=== PATIENT | female | born 1970 | race Caucasian/White ===

== ENCOUNTER 2018-05-22 14:50 | Inpatient (IN) | payer MEDICARE, MEDICAID ==
[~2018-05-22] VITALS: Ht 147.3 cm; Wt 59.5 kg
[~2018-05-22 14:50] MED LIST: ACET-2119 PO; BACL10TA PO; CALC-159 GT; CHOL200016 GT; ESOM40CA GT; LORA-512 GT; METH1TAB GT; NORE1TAB4 GT; NUTR250L51 GT; NYST30CR2 TP; POLY17PO10 GT; SIME125T8 PEG; [UNRECOGNIZED DRUG - CODE] EACH EAR; [UNRECOGNIZED DRUG - CODE] PEG; etomidate 2mg/ml inj. ONE; rocuronium 10mg/ml inj IV ONE; sod chloride 0.9% 10ml flush syringe IV ONE
[2018-05-22] MEDS ORDERED: albuterol 2.5 MG/3 ML nebule NEB ONE (15:05)
[2018-05-22] MEDS ORDERED: normal saline 1000ML IV soln IVB ONE ×2 (15:05→16:25)
[2018-05-22 15:25] LABS: ABG BASE EXCESS -0.1 mmol/L (-2.0-3.0); ABG HCO3 22.2 mmol/L (22.0-26.0); ABG OXYGEN SATURATION 87.8 % (95-98); ABG PCO2 (T) 29.3 mmHg (32.0-45.0); ABG PH (T) 7.498 (7.350-7.450); ABG PO2 (T) 50.4 mmHg (83-108); ALLEN'S TEST Positive; FCOHb 1.7 % (0.5-1.5); FMetHb 0.1 % (0.3-1.12); FO2Hb 86.2 % (94-100); TOTAL HEMOGLOBIN 12.4 G/dl (12.0-16.0)
[2018-05-22 15:40] LABS: BASOPHILS % (AUTO) 0 % (0-1); EOSINOPHILS # (AUTO) 0.1 X10'3 (0-0.9); EOSINOPHILS % (AUTO) 0.7 % (0-6); HEMATOCRIT 35.7 % (35.0-45.0); HEMOGLOBIN 12.1 g/dl (12.0-16.0); LYMPHOCYTES # (AUTO) 1.2 X10'3 (1.1-4.8); LYMPHOCYTES % (AUTO) 7.2 % (21-51); MEAN CORPUSCULAR HEMOGLOBIN 27.6 PG (27.0-31.0); MEAN CORPUSCULAR HGB CONC 33.9 % (33.0-36.5); MEAN CORPUSCULAR VOLUME 81.4 FL (78-98); MEAN PLATELET VOLUME 10.9 FL (7.4-10.4); MONOCYTES # (AUTO) 0.9 X10'3 (0-0.9); MONOCYTES % (AUTO) 5.7 % (2-12); NEUTROPHILS # (AUTO) 13.9 X10'3 (1.8-7.7); NEUTROPHILS % (AUTO) 86.4 % (42-75); PLATELET COUNT 203 X10'3 (140-440); RED BLOOD COUNT 4.38 X10'6 (4.20-5.60); RED CELL DISTRIBUTION WIDTH 15.3 % (11.5-14.5); WHITE BLOOD COUNT 16.1 X10'3 (4.5-11.0)
[2018-05-22 15:44] LABS: PARTIAL THROMBOPLASTIN TIME 24 SECONDS (22-32)
[2018-05-22 15:49] LABS: LARGE PLATELETS FEW; PLATELET ESTIMATE NORMAL
[2018-05-22 15:50] LABS: ALANINE AMINOTRANSFERASE 189 U/L (12-78); ALBUMIN 2.5 G/DL (3.4-5.0); ALBUMIN/GLOBULIN RATIO 0.6 (1.1-1.5); ALKALINE PHOSPHATASE 134 IU/L (46-116); ANION GAP 9 (8-16); ASPARTATE AMINO TRANSFERASE 72 U/L (10-37); BLOOD UREA NITROGEN 12 MG/DL (7-18); BUN/CREATININE RATIO 21.4 (6.6-38.0); CHLORIDE 103 MMOL/L (99-107); CREATININE 0.56 MG/DL (0.40-0.90); GLUCOSE 156 MG/DL (70-104); POTASSIUM 3.4 MMOL/L (3.5-5.1); SODIUM 138 MMOL/L (135-145); TOTAL CARBON DIOXIDE 25.6 MMOL/L (24-32); TOTAL PROTEIN 6.6 G/DL (6.4-8.2); eGFR > 90 ML/MIN
[2018-05-22] MEDS ORDERED: levoFLOXACIN-Levaquin 500mg/D5 100 ML IV ONE (15:50)
[2018-05-22 15:56] LABS: MAGNESIUM 1.8 MG/DL (1.5-2.4)
[2018-05-22 16:31] LABS: CLARITY,URINE CLOUDY (Clear); GLUCOSE, URINE NEGATIVE (Neg); KETONES,URINE TRACE mg/dl (Neg); LEUKOCYTE ESTERASE ,URINE TRACE (Neg); NITRITES, URINE NEGATIVE (Neg); OCCULT BLOOD,URINE SMALL (Neg); PROTEIN,URINE 100 mg/dl (Neg)
[2018-05-22 16:37] LABS: UA COLLECTION TYPE STRAIGHT CATH
[2018-05-22 16:39] LABS: COLOR,URINE DARK YELLOW (Yellow)
[2018-05-22 16:41] LABS: BACTERIA,URINE 4+ /HPF (Neg); HYALINE CASTS 0-3 /LPF (NEGATIVE); MUCUS STRANDS MANY /LPF (Neg); SQUAMOUS EPITHELIAL CELL,UR MODERATE /LPF (FEW); TRANSITIONAL EPI CELLS,URINE FEW /HPF; WBC CLUMPS,URINE FEW /HPF (NEGATIVE)
[2018-05-22] MEDS ORDERED: potassium Cl 40MEQ/NS 500ml 500 ML IV PRN ×2 (17:20)
[2018-05-22] MEDS ORDERED: mag hydrox/Alum hydrox/simeth 30ml oral suspension PO PRN (17:20)
[2018-05-22] MEDS ORDERED: acetaminophen 325mg tablet PO PRN ×2 (17:20)
[2018-05-22] MEDS ORDERED: metoclopramide 5 mg/ml inj IV PRN (17:20)
[2018-05-22] MEDS ORDERED: bisacodyl 10mg suppository rectal RC PRN (17:20)
[2018-05-22] MEDS ORDERED: diphenhydrAMINE 25mg capsule PO PRN (17:20)
[2018-05-22] MEDS ORDERED: HYDROcodone/acetaminophen 5mg/325mg tablet PO PRN (17:20)
[2018-05-22] MEDS ORDERED: HYDROmorphone 1 mg/ml syringe IV PRN ×2 (17:20)
[2018-05-22] MEDS ORDERED: acetaminophen 650mg rectal suppository RC PRN (17:20)
[2018-05-22] MEDS ORDERED: morphine 4 MG/ML inj SYRINge IV PRN ×2 (17:20)
[2018-05-22] MEDS ORDERED: ondansetron/PF 4mg/2ml inj IV PRN (17:20)
[2018-05-22] MEDS ORDERED: HYDROcodone/acetaminophen 10/325mg tab PO PRN (17:20)
[2018-05-22] MEDS ORDERED: magnesium hydroxide 30ml (MOM) UD suspension PO PRN (17:20)
[2018-05-22] MEDS ORDERED: potassium Cl 20 mEq SR tablet PO PRN ×2 (17:20)
[2018-05-22] MEDS ORDERED: diphenhydrAMINE 50 mg/ml inj IV PRN (17:20)
[2018-05-22 17:57] LABS: PHOSPHORUS 1.9 MG/DL (2.3-4.5)
[2018-05-22 18:04] LABS: MAGNESIUM 1.7 MG/DL (1.5-2.4); POTASSIUM 3.8 MMOL/L (3.5-5.1)
[2018-05-22] MEDS: potassium Cl 20mEq in NS 1,000 ML IV SCH (18:41)
[2018-05-22] MEDS ORDERED: docusate sod 100mg capsule PO SCH (20:00)
[2018-05-22] MEDS: heparin, porcine 5000 units/ml vial SQ SCH (20:03)
[2018-05-22 21:00] VITALS: BP 117/88
[2018-05-22] MEDS ORDERED: temazepam 15mg capsule PO PRN (21:00)
[2018-05-22] MEDS: ipratropium/albuterol 3ml nebule NEB PRN (22:08)
[2018-05-22 23:36] VITALS: BP 137/74
[2018-05-23] VITALS (20 sets, daily range): BP systolic 99–183; BP diastolic 69–95
[2018-05-23] MEDS ORDERED: piperacillin/tazo 3.375gm/50ml 50 ML IV SCH
[2018-05-23] MEDS ORDERED: normal saline 1000ml 1,000 ML IV ONE (02:25)
[2018-05-23] MEDS: ipratropium/albuterol 3ml nebule NEB PRN (03:11)
[2018-05-23] MEDS: potassium Cl 20mEq in NS 1,000 ML IV SCH (03:20)
[2018-05-23] MEDS ORDERED: methylPREDNISolone sod succ/PF 40mg inj. IV STA (03:25)
[2018-05-23] MEDS ORDERED: LORazepam 2 mg/ml vial IV STA (03:27)
[2018-05-23] MEDS ORDERED: iohexol 350MG/ML 100ml bottle IV ONE (03:45)
[2018-05-23 05:06] LABS: ABG BASE EXCESS -4.1 mmol/L (-2.0-3.0); ABG PCO2 (T) 35.3 mmHg (32.0-45.0); ABG PH (T) 7.377 (7.350-7.450); ABG PO2 (T) 57.9 mmHg (83-108); ALLEN'S TEST Positive; FCOHb 0.3 % (0.5-1.5); FLOW 15 L/min; FMetHb 0.2 % (0.3-1.12); FO2Hb 83.6 % (94-100); PATIENT TEMPERATURE 38.1; TOTAL HEMOGLOBIN 11.8 G/dl (12.0-16.0)
[2018-05-23 05:16] LABS: BASOPHILS % (AUTO) 0.2 % (0-1); EOSINOPHILS # (AUTO) 0.1 X10'3 (0-0.9); EOSINOPHILS % (AUTO) 0.9 % (0-6); HEMATOCRIT 33.2 % (35.0-45.0); LYMPHOCYTES # (AUTO) 1.5 X10'3 (1.1-4.8); LYMPHOCYTES % (AUTO) 10.5 % (21-51); MEAN CORPUSCULAR HEMOGLOBIN 27.6 PG (27.0-31.0); MEAN CORPUSCULAR HGB CONC 33.1 % (33.0-36.5); MEAN CORPUSCULAR VOLUME 83.3 FL (78-98); MEAN PLATELET VOLUME 11.6 FL (7.4-10.4); MONOCYTES # (AUTO) 0.8 X10'3 (0-0.9); MONOCYTES % (AUTO) 5.8 % (2-12); NEUTROPHILS % (AUTO) 82.6 % (42-75); PLATELET COUNT 169 X10'3 (140-440); RED BLOOD COUNT 3.98 X10'6 (4.20-5.60); RED CELL DISTRIBUTION WIDTH 15.4 % (11.5-14.5); WHITE BLOOD COUNT 14.6 X10'3 (4.5-11.0)
[2018-05-23 05:59] LABS: LARGE PLATELETS MODERATE; PLATELET ESTIMATE NORMAL
[2018-05-23] MEDS ORDERED: albuterol 2.5 MG/3 ML nebule NEB PRN (06:10)
[2018-05-23] MEDS ORDERED: magnesium 4gm in 100ml NS 100 ML IV PRN (06:10)
[2018-05-23] MEDS ORDERED: potassium Cl 40MEQ/NS 500ml 500 ML IV PRN ×2 (06:10)
[2018-05-23] MEDS ORDERED: magnesium 1gm/100ml D5W IVPB 100 ML IV PRN (06:10)
[2018-05-23] MEDS ORDERED: fentaNYL/PF 50MCG/1 ML 2ML syringe IV PRN (06:15)
[2018-05-23] MEDS ORDERED: midazolam 2 mg/2 ml injection IV ONE (06:15)
[2018-05-23 06:27] LABS: ALANINE AMINOTRANSFERASE 215 U/L (12-78); ALBUMIN 2.2 G/DL (3.4-5.0); ALBUMIN/GLOBULIN RATIO 0.6 (1.1-1.5); ALKALINE PHOSPHATASE 134 IU/L (46-116); ANION GAP 9 (8-16); ASPARTATE AMINO TRANSFERASE 86 U/L (10-37); BILIRUBIN,TOTAL 1.1 MG/DL (0.1-1.0); BLOOD UREA NITROGEN 11 MG/DL (7-18); CALCIUM 7.9 MG/DL (8.5-10.1); CHLORIDE 108 MMOL/L (99-107); CREATININE 0.55 MG/DL (0.40-0.90); GLUCOSE 177 MG/DL (70-104); MAGNESIUM 1.8 MG/DL (1.5-2.4); POTASSIUM 3.3 MMOL/L (3.5-5.1); SODIUM 139 MMOL/L (135-145); TOTAL CARBON DIOXIDE 21.8 MMOL/L (24-32); eGFR > 90 ML/MIN
[2018-05-23] MEDS: ipratropium/albuterol 3ml nebule NEB SCH ×5 (07:32→23:15)
[2018-05-23] MEDS: midazolam 100mg in NS 100ml 100 ML IV PRN ×2 (07:44→19:13)
[2018-05-23] MEDS: FENTANYL-0.9 % NACL/PF 100 ML IV PRN ×2 (07:45→19:12)
[2018-05-23] MEDS ORDERED: levoFLOXACIN-Levaquin 500mg/D5 100 ML IV SCH (08:00)
[2018-05-23] MEDS: pantoprazole 40 MG vial IV SCH (08:32)
[2018-05-23] MEDS: heparin, porcine 5000 units/ml vial SQ SCH ×2 (08:34→20:39)
[2018-05-23] MEDS ORDERED: potassium Cl oral solution 20 MEQ/15 ML PO PRN (08:55)
[2018-05-23] MEDS: potassium Cl oral solution 20 MEQ/15 ML PO PRN (11:23)
[2018-05-23] MEDS: piperacillin/tazo 3.375gm/50ml 50 ML IV SCH ×3 (11:23→23:20)
[2018-05-23] MEDS ORDERED: MESSAGE TO PHARMACY PO ONE (20:55)
[2018-05-23] MEDS ORDERED: dextrose 50%-water 50ml dispensing syringe IV PRN ×2 (20:55)
[2018-05-23] MEDS ORDERED: glucagon, human recombinant 1mg kit SUBCUT PRN (20:55)
[2018-05-23 21:05] LABS: ABG BASE EXCESS 0.2 mmol/L (-2.0-3.0); ABG PH (T) 7.433 (7.350-7.450); ABG PO2 (T) 64.5 mmHg (83-108); ALLEN'S TEST Positive; FCOHb 0.1 % (0.5-1.5); FMetHb 0.1 % (0.3-1.12); FO2Hb 91.8 % (94-100); MINUTE VOLUME 10 L/min; PATIENT TEMPERATURE 37.6; PEEP 5 cm H2O; RESPIRATORY RATE 18 b/min; RESPIRATORY RATE (OBSERVED) 20 b/min; TIDAL VOLUME 400 mL; TOTAL HEMOGLOBIN 10.9 G/dl (12.0-16.0)
[2018-05-23] MEDS: insulin regular, human vial - multi-dose SQ SCH (22:11)
[2018-05-23] MEDS: insulin glargine (Lantus) pen - multi-dose SQ SCH (22:12)
[2018-05-24] VITALS (24 sets, daily range): BP systolic 97–148; BP diastolic 63–88
[2018-05-24] MEDS: insulin regular, human vial - multi-dose SQ SCH ×2 (02:09→20:17)
[2018-05-24 02:45] LABS: BASOPHILS % (AUTO) 0.2 % (0-1); EOSINOPHILS # (AUTO) 0.2 X10'3 (0-0.9); EOSINOPHILS % (AUTO) 1.4 % (0-6); HEMATOCRIT 29.3 % (35.0-45.0); HEMOGLOBIN 9.4 g/dl (12.0-16.0); LYMPHOCYTES # (AUTO) 1.4 X10'3 (1.1-4.8); LYMPHOCYTES % (AUTO) 10.1 % (21-51); MEAN CORPUSCULAR HEMOGLOBIN 26.9 PG (27.0-31.0); MEAN PLATELET VOLUME 11.3 FL (7.4-10.4); MONOCYTES # (AUTO) 0.8 X10'3 (0-0.9); MONOCYTES % (AUTO) 6.1 % (2-12); NEUTROPHILS % (AUTO) 82.2 % (42-75); PLATELET COUNT 173 X10'3 (140-440); RED BLOOD COUNT 3.49 X10'6 (4.20-5.60); RED CELL DISTRIBUTION WIDTH 15.8 % (11.5-14.5); WHITE BLOOD COUNT 13.4 X10'3 (4.5-11.0)
[2018-05-24 03:02] LABS: ALANINE AMINOTRANSFERASE 182 U/L (12-78); ALBUMIN 1.9 G/DL (3.4-5.0); ALBUMIN/GLOBULIN RATIO 0.6 (1.1-1.5); ALKALINE PHOSPHATASE 117 IU/L (46-116); ANION GAP 4 (8-16); ASPARTATE AMINO TRANSFERASE 56 U/L (10-37); BILIRUBIN,TOTAL 1.1 MG/DL (0.1-1.0); BLOOD UREA NITROGEN 11 MG/DL (7-18); BUN/CREATININE RATIO 26.8 (6.6-38.0); CALCIUM 7.6 MG/DL (8.5-10.1); CHLORIDE 112 MMOL/L (99-107); CREATININE 0.41 MG/DL (0.40-0.90); GLUCOSE 146 MG/DL (70-104); POTASSIUM 3.2 MMOL/L (3.5-5.1); SODIUM 143 MMOL/L (135-145); TOTAL PROTEIN 5.3 G/DL (6.4-8.2); eGFR > 90 ML/MIN
[2018-05-24] MEDS ORDERED: magnesium 1gm/100ml D5W IVPB 100 ML IV PRN (03:15)
[2018-05-24] MEDS ORDERED: magnesium 4gm in 100ml NS 100 ML IV PRN (03:15)
[2018-05-24] MEDS ORDERED: potassium Cl 40MEQ/250ML bag 250 ML IV PRN (03:15)
[2018-05-24 03:17] LABS: PREALBUMIN 12.8 MG/DL (19-36)
[2018-05-24] MEDS: ipratropium/albuterol 3ml nebule NEB SCH ×6 (03:22→23:15)
[2018-05-24] MEDS: potassium Cl 40MEQ/250ML bag 250 ML IV PRN (03:53)
[2018-05-24] MEDS: midazolam 100mg in NS 100ml 100 ML IV PRN ×2 (05:44→21:48)
[2018-05-24] MEDS: pantoprazole 40 MG vial IV SCH (07:55)
[2018-05-24] MEDS: piperacillin/tazo 3.375gm/50ml 50 ML IV SCH ×2 (07:55→16:07)
[2018-05-24] MEDS: heparin, porcine 5000 units/ml vial SQ SCH ×2 (07:56→19:45)
[2018-05-24] MEDS: mineral oil/petrolatum ophthal oint EACHEYE SCH ×3 (07:56→19:45)
[2018-05-24] MEDS: FENTANYL-0.9 % NACL/PF 100 ML IV PRN ×2 (10:14→21:48)
[2018-05-24 12:01] LABS: ABG BASE EXCESS 0.9 mmol/L (-2.0-3.0); ABG HCO3 24.1 mmol/L (22.0-26.0); ABG OXYGEN SATURATION 95.8 % (95-98); ABG PCO2 (T) 33.4 mmHg (32.0-45.0); ABG PH (T) 7.476 (7.350-7.450); ABG PO2 (T) 78.2 mmHg (83-108); ALLEN'S TEST Positive; FCOHb 0.3 % (0.5-1.5); FMetHb 0.1 % (0.3-1.12); FO2Hb 95.4 % (94-100); MINUTE VOLUME 11 L/min; PEEP 5 cm H2O; RESPIRATORY RATE 18 b/min; RESPIRATORY RATE (OBSERVED) 28 b/min; TIDAL VOLUME 325 mL; TOTAL HEMOGLOBIN 10.6 G/dl (12.0-16.0)
[2018-05-24] MEDS: acetaminophen 325mg/10.15ml oral unit dose solution PO PRN (13:11)
[2018-05-24] MEDS: insulin glargine (Lantus) pen - multi-dose SQ SCH (19:43)
[2018-05-25] VITALS (24 sets, daily range): BP systolic 98–159; BP diastolic 58–95
[2018-05-25] MEDS: piperacillin/tazo 3.375gm/50ml 50 ML IV SCH ×2 (00:33→08:38)
[2018-05-25] MEDS: mineral oil/petrolatum ophthal oint EACHEYE SCH ×4 (01:41→20:00)
[2018-05-25] MEDS: ipratropium/albuterol 3ml nebule NEB SCH ×6 (03:16→23:07)
[2018-05-25 03:36] LABS: ABG BASE EXCESS 1.2 mmol/L (-2.0-3.0); ABG HCO3 24.8 mmol/L (22.0-26.0); ABG OXYGEN SATURATION 90.9 % (95-98); ABG PCO2 (T) 37.6 mmHg (32.0-45.0); ABG PH (T) 7.442 (7.350-7.450); ABG PO2 (T) 62.9 mmHg (83-108); ALLEN'S TEST Positive; FCOHb 0.4 % (0.5-1.5); FMetHb 0.2 % (0.3-1.12); FO2Hb 90.4 % (94-100); MINUTE VOLUME 12 L/min; PATIENT TEMPERATURE 38.3; PEEP 5 cm H2O; RESPIRATORY RATE 18 b/min; RESPIRATORY RATE (OBSERVED) 30 b/min; TIDAL VOLUME 325 mL; TOTAL HEMOGLOBIN 10.9 G/dl (12.0-16.0)
[2018-05-25 04:22] LABS: BASOPHILS % (AUTO) 0.3 % (0-1); EOSINOPHILS # (AUTO) 1.4 X10'3 (0-0.9); EOSINOPHILS % (AUTO) 10.6 % (0-6); HEMOGLOBIN 9.5 g/dl (12.0-16.0); LYMPHOCYTES # (AUTO) 2.3 X10'3 (1.1-4.8); LYMPHOCYTES % (AUTO) 18.3 % (21-51); MEAN CORPUSCULAR HEMOGLOBIN 27.4 PG (27.0-31.0); MEAN CORPUSCULAR HGB CONC 32.8 % (33.0-36.5); MEAN CORPUSCULAR VOLUME 83.5 FL (78-98); MEAN PLATELET VOLUME 10.9 FL (7.4-10.4); MONOCYTES # (AUTO) 0.6 X10'3 (0-0.9); MONOCYTES % (AUTO) 4.5 % (2-12); NEUTROPHILS # (AUTO) 8.4 X10'3 (1.8-7.7); NEUTROPHILS % (AUTO) 66.3 % (42-75); RED BLOOD COUNT 3.47 X10'6 (4.20-5.60); RED CELL DISTRIBUTION WIDTH 15.7 % (11.5-14.5); WHITE BLOOD COUNT 12.7 X10'3 (4.5-11.0)
[2018-05-25 04:44] LABS: INR 0.9 INR; PROTHROMBIN TIME 9.7 SECONDS (9.0-12.0)
[2018-05-25 04:50] LABS: PLATELET COUNT 182 X10'3 (140-440)
[2018-05-25 04:59] LABS: ALANINE AMINOTRANSFERASE 174 U/L (12-78); ALBUMIN 1.8 G/DL (3.4-5.0); ALBUMIN/GLOBULIN RATIO 0.5 (1.1-1.5); ALKALINE PHOSPHATASE 137 IU/L (46-116); ANION GAP 7 (8-16); ASPARTATE AMINO TRANSFERASE 54 U/L (10-37); BLOOD UREA NITROGEN 10 MG/DL (7-18); CALCIUM 8.4 MG/DL (8.5-10.1); CHLORIDE 107 MMOL/L (99-107); CREATININE 0.37 MG/DL (0.40-0.90); GLUCOSE 118 MG/DL (70-104); MAGNESIUM 1.7 MG/DL (1.5-2.4); POTASSIUM 3.9 MMOL/L (3.5-5.1); SODIUM 141 MMOL/L (135-145); TOTAL CARBON DIOXIDE 26.9 MMOL/L (24-32); TOTAL PROTEIN 5.4 G/DL (6.4-8.2); eGFR > 90 ML/MIN
[2018-05-25] MEDS: acetaminophen 325mg/10.15ml oral unit dose solution PO PRN (05:20)
[2018-05-25] MEDS: pantoprazole 40 MG vial IV SCH (08:39)
[2018-05-25] MEDS: heparin, porcine 5000 units/ml vial SQ SCH ×2 (08:39→20:04)
[2018-05-25] MEDS: FENTANYL-0.9 % NACL/PF 100 ML IV PRN ×2 (08:40→20:10)
[2018-05-25] MEDS ORDERED: levoFLOXACIN-Levaquin 500mg/D5 100 ML IV ONE (10:35)
[2018-05-25] MEDS: midazolam 100mg in NS 100ml 100 ML IV PRN (13:19)
[2018-05-25] MEDS ORDERED: furosemide 10 MG/1 ML 10ml inj IV ONE (20:35)
[2018-05-25] MEDS ORDERED: methylPREDNISolone sod succ 125mg/2ml vial IV ONE (20:35)
[2018-05-25 20:51] LABS: ABG BASE EXCESS 1.2 mmol/L (-2.0-3.0); ABG HCO3 24.8 mmol/L (22.0-26.0); ABG OXYGEN SATURATION 92.2 % (95-98); ABG PCO2 (T) 35.6 mmHg (32.0-45.0); ABG PH (T) 7.461 (7.350-7.450); ABG PO2 (T) 64.4 mmHg (83-108); ALLEN'S TEST Positive; FCOHb 0.5 % (0.5-1.5); FMetHb 0.2 % (0.3-1.12); FO2Hb 91.6 % (94-100); PATIENT TEMPERATURE 37.2; PEEP 5 cm H2O; RESPIRATORY RATE 18 b/min; TIDAL VOLUME 325 mL; TOTAL HEMOGLOBIN 10.8 G/dl (12.0-16.0)
[2018-05-25] MEDS: insulin glargine (Lantus) pen - multi-dose SQ SCH (21:00)
[2018-05-26] VITALS (23 sets, daily range): BP systolic 103–155; BP diastolic 67–92
[2018-05-26] MEDS: mineral oil/petrolatum ophthal oint EACHEYE SCH ×4 (02:00→19:21)
[2018-05-26] MEDS: methylPREDNISolone sod succ/PF 40mg inj. IV SCH ×4 (02:22→19:17)
[2018-05-26] MEDS: ipratropium/albuterol 3ml nebule NEB SCH ×6 (02:48→22:59)
[2018-05-26] MEDS: insulin regular, human vial - multi-dose SQ SCH ×4 (02:49→23:28)
[2018-05-26 03:31] LABS: BASOPHILS % (AUTO) 0.1 % (0-1); EOSINOPHILS # (AUTO) 0.4 X10'3 (0-0.9); EOSINOPHILS % (AUTO) 3.3 % (0-6); LYMPHOCYTES # (AUTO) 0.6 X10'3 (1.1-4.8); LYMPHOCYTES % (AUTO) 5.1 % (21-51); MEAN CORPUSCULAR HGB CONC 32.2 % (33.0-36.5); MEAN CORPUSCULAR VOLUME 83.8 FL (78-98); MEAN PLATELET VOLUME 10.7 FL (7.4-10.4); MONOCYTES # (AUTO) 0.1 X10'3 (0-0.9); MONOCYTES % (AUTO) 0.8 % (2-12); NEUTROPHILS # (AUTO) 10.2 X10'3 (1.8-7.7); NEUTROPHILS % (AUTO) 90.7 % (42-75); PLATELET COUNT 207 X10'3 (140-440); RED CELL DISTRIBUTION WIDTH 15.9 % (11.5-14.5); WHITE BLOOD COUNT 11.2 X10'3 (4.5-11.0)
[2018-05-26 03:46] LABS: ABG BASE EXCESS 3.4 mmol/L (-2.0-3.0); ABG HCO3 27.7 mmol/L (22.0-26.0); ABG OXYGEN SATURATION 89.2 % (95-98); ABG PCO2 (T) 41.2 mmHg (32.0-45.0); ABG PH (T) 7.445 (7.350-7.450); ABG PO2 (T) 55.2 mmHg (83-108); FCOHb 0.3 % (0.5-1.5); FMetHb 0.2 % (0.3-1.12); FO2Hb 88.8 % (94-100); PATIENT TEMPERATURE 37.1; PEEP 5 cm H2O; RESPIRATORY RATE 18 b/min; TIDAL VOLUME 325 mL; TOTAL HEMOGLOBIN 11.8 G/dl (12.0-16.0)
[2018-05-26 03:46] LABS: ALANINE AMINOTRANSFERASE 183 U/L (12-78); ALBUMIN/GLOBULIN RATIO 0.5 (1.1-1.5); ALKALINE PHOSPHATASE 153 IU/L (46-116); ANION GAP 6 (8-16); ASPARTATE AMINO TRANSFERASE 58 U/L (10-37); BILIRUBIN,TOTAL 0.9 MG/DL (0.1-1.0); BLOOD UREA NITROGEN 14 MG/DL (7-18); CALCIUM 8.8 MG/DL (8.5-10.1); CHLORIDE 103 MMOL/L (99-107); GLUCOSE 225 MG/DL (70-104); MAGNESIUM 1.6 MG/DL (1.5-2.4); POTASSIUM 3.4 MMOL/L (3.5-5.1); SODIUM 139 MMOL/L (135-145); TOTAL CARBON DIOXIDE 29.9 MMOL/L (24-32); TOTAL PROTEIN 5.9 G/DL (6.4-8.2); eGFR > 90 ML/MIN
[2018-05-26] MEDS ORDERED: potassium Cl 40MEQ/250ML bag 250 ML IV ONE (04:14)
[2018-05-26] MEDS: potassium Cl 40MEQ/250ML bag 250 ML IV PRN (04:21)
[2018-05-26] MEDS: midazolam 100mg in NS 100ml 100 ML IV PRN ×2 (04:24→18:22)
[2018-05-26] MEDS: FENTANYL-0.9 % NACL/PF 100 ML IV PRN ×3 (04:25→18:42)
[2018-05-26] MEDS: pantoprazole 40 MG vial IV SCH (07:45)
[2018-05-26] MEDS: levoFLOXACIN-Levaquin 500mg/D5 100 ML IV SCH (07:45)
[2018-05-26] MEDS: heparin, porcine 5000 units/ml vial SQ SCH ×2 (07:46→19:17)
[2018-05-26] MEDS: insulin glargine (Lantus) pen - multi-dose SQ SCH (19:21)
[2018-05-27] VITALS (24 sets, daily range): BP systolic 104–162; BP diastolic 59–97
[2018-05-27] MEDS: methylPREDNISolone sod succ/PF 40mg inj. IV SCH ×4 (01:30→20:15)
[2018-05-27] MEDS: mineral oil/petrolatum ophthal oint EACHEYE SCH ×5 (01:30→18:48)
[2018-05-27] MEDS: ipratropium/albuterol 3ml nebule NEB SCH ×6 (03:12→21:00)
[2018-05-27 03:33] LABS: BASOPHILS % (AUTO) 0.1 % (0-1); EOSINOPHILS # (AUTO) 0.1 X10'3 (0-0.9); EOSINOPHILS % (AUTO) 1.2 % (0-6); HEMATOCRIT 30.3 % (35.0-45.0); LYMPHOCYTES # (AUTO) 0.9 X10'3 (1.1-4.8); LYMPHOCYTES % (AUTO) 7.8 % (21-51); MEAN CORPUSCULAR HEMOGLOBIN 27.3 PG (27.0-31.0); MEAN CORPUSCULAR HGB CONC 32.8 % (33.0-36.5); MEAN CORPUSCULAR VOLUME 83.2 FL (78-98); MEAN PLATELET VOLUME 10.4 FL (7.4-10.4); MONOCYTES # (AUTO) 0.5 X10'3 (0-0.9); MONOCYTES % (AUTO) 4.1 % (2-12); NEUTROPHILS # (AUTO) 10.2 X10'3 (1.8-7.7); NEUTROPHILS % (AUTO) 86.8 % (42-75); PLATELET COUNT 247 X10'3 (140-440); RED BLOOD COUNT 3.65 X10'6 (4.20-5.60); RED CELL DISTRIBUTION WIDTH 15.4 % (11.5-14.5); WHITE BLOOD COUNT 11.8 X10'3 (4.5-11.0)
[2018-05-27 03:44] LABS: PROTHROMBIN TIME 9.9 SECONDS (9.0-12.0)
[2018-05-27 03:48] LABS: ALANINE AMINOTRANSFERASE 237 U/L (12-78); ALBUMIN/GLOBULIN RATIO 0.5 (1.1-1.5); ALKALINE PHOSPHATASE 267 IU/L (46-116); ANION GAP 4 (8-16); ASPARTATE AMINO TRANSFERASE 99 U/L (10-37); BILIRUBIN,TOTAL 0.8 MG/DL (0.1-1.0); BLOOD UREA NITROGEN 20 MG/DL (7-18); BUN/CREATININE RATIO 51.3 (6.6-38.0); CALCIUM 8.7 MG/DL (8.5-10.1); CHLORIDE 108 MMOL/L (99-107); CREATININE 0.39 MG/DL (0.40-0.90); GLUCOSE 159 MG/DL (70-104); POTASSIUM 3.9 MMOL/L (3.5-5.1); PREALBUMIN 17.3 MG/DL (19-36); SODIUM 142 MMOL/L (135-145); TOTAL CARBON DIOXIDE 30.4 MMOL/L (24-32); TOTAL PROTEIN 5.8 G/DL (6.4-8.2); eGFR > 90 ML/MIN
[2018-05-27 03:50] LABS: ABG BASE EXCESS -0.2 mmol/L (-2.0-3.0); ABG OXYGEN SATURATION 92.9 % (95-98); ABG PCO2 (T) 36.4 mmHg (32.0-45.0); ABG PH (T) 7.435 (7.350-7.450); ABG PO2 (T) 69.1 mmHg (83-108); ALLEN'S TEST Positive; FCOHb 0.3 % (0.5-1.5); FMetHb 0.3 % (0.3-1.12); FO2Hb 92.3 % (94-100); MINUTE VOLUME 7 L/min; PATIENT TEMPERATURE 36.6; PEEP 5 cm H2O; RESPIRATORY RATE 18 b/min; RESPIRATORY RATE (OBSERVED) 20 b/min; TIDAL VOLUME 325 mL; TOTAL HEMOGLOBIN 10.5 G/dl (12.0-16.0)
[2018-05-27] MEDS: pantoprazole 40 MG vial IV SCH (07:23)
[2018-05-27] MEDS: levoFLOXACIN-Levaquin 500mg/D5 100 ML IV SCH (07:24)
[2018-05-27] MEDS: heparin, porcine 5000 units/ml vial SQ SCH ×2 (07:24→20:16)
[2018-05-27] MEDS: midazolam 100mg in NS 100ml 100 ML IV PRN (07:44)
[2018-05-27] MEDS: insulin regular, human vial - multi-dose SQ SCH ×3 (08:53→20:24)
[2018-05-27] MEDS ORDERED: DEXMEDETOMIDINE 400MCG in NORMAL SALINE 100ml IV SCH (11:15)
[2018-05-27] MEDS: FENTANYL-0.9 % NACL/PF 100 ML IV PRN (12:29)
[2018-05-27] MEDS ORDERED: racepinephrine 11.25mg/0.5ml nebule NEB PRN (14:50)
[2018-05-27] MEDS ORDERED: ipratropium/albuterol 3ml nebule NEB PRN (14:50)
[2018-05-27] MEDS: lactobacillus rhamnosus 10,000 MMU CELLS/CAPSULE PO SCH (20:16)
[2018-05-27] MEDS: insulin glargine (Lantus) pen - multi-dose SQ SCH (20:26)
[2018-05-27] MEDS: acetaminophen 325mg/10.15ml oral unit dose solution PO PRN (23:33)
[2018-05-28] VITALS (17 sets, daily range): BP systolic 129–168; BP diastolic 74–108
[2018-05-28] MEDS: methylPREDNISolone sod succ/PF 40mg inj. IV SCH ×4 (02:03→20:49)
[2018-05-28] MEDS: insulin regular, human vial - multi-dose SQ SCH ×4 (02:09→20:49)
[2018-05-28] MEDS: ipratropium/albuterol 3ml nebule NEB SCH ×4 (03:17→20:25)
[2018-05-28 04:46] LABS: BASOPHILS % (AUTO) 0 % (0-1); EOSINOPHILS # (AUTO) 0.2 X10'3 (0-0.9); EOSINOPHILS % (AUTO) 1.9 % (0-6); HEMATOCRIT 32.5 % (35.0-45.0); HEMOGLOBIN 10.8 g/dl (12.0-16.0); LYMPHOCYTES # (AUTO) 1.2 X10'3 (1.1-4.8); LYMPHOCYTES % (AUTO) 9.5 % (21-51); MEAN CORPUSCULAR HEMOGLOBIN 27.7 PG (27.0-31.0); MEAN CORPUSCULAR HGB CONC 33.1 % (33.0-36.5); MEAN CORPUSCULAR VOLUME 83.5 FL (78-98); MEAN PLATELET VOLUME 9.9 FL (7.4-10.4); MONOCYTES # (AUTO) 0.4 X10'3 (0-0.9); MONOCYTES % (AUTO) 2.9 % (2-12); NEUTROPHILS # (AUTO) 10.5 X10'3 (1.8-7.7); NEUTROPHILS % (AUTO) 85.7 % (42-75); PLATELET COUNT 263 X10'3 (140-440); RED BLOOD COUNT 3.89 X10'6 (4.20-5.60); RED CELL DISTRIBUTION WIDTH 15.6 % (11.5-14.5); WHITE BLOOD COUNT 12.2 X10'3 (4.5-11.0)
[2018-05-28 05:02] LABS: ALANINE AMINOTRANSFERASE 333 U/L (12-78); ALBUMIN 2.2 G/DL (3.4-5.0); ALBUMIN/GLOBULIN RATIO 0.6 (1.1-1.5); ALKALINE PHOSPHATASE 271 IU/L (46-116); ANION GAP 8 (8-16); ASPARTATE AMINO TRANSFERASE 98 U/L (10-37); BILIRUBIN,TOTAL 0.8 MG/DL (0.1-1.0); BLOOD UREA NITROGEN 20 MG/DL (7-18); BUN/CREATININE RATIO 38.5 (6.6-38.0); CALCIUM 8.7 MG/DL (8.5-10.1); CHLORIDE 106 MMOL/L (99-107); CREATININE 0.52 MG/DL (0.40-0.90); GLUCOSE 178 MG/DL (70-104); MAGNESIUM 1.8 MG/DL (1.5-2.4); POTASSIUM 3.7 MMOL/L (3.5-5.1); SODIUM 143 MMOL/L (135-145); TOTAL CARBON DIOXIDE 29.5 MMOL/L (24-32); TOTAL PROTEIN 5.8 G/DL (6.4-8.2); eGFR > 90 ML/MIN
[2018-05-28] MEDS: mineral oil/petrolatum ophthal oint EACHEYE SCH ×3 (08:00→20:52)
[2018-05-28] MEDS: pantoprazole 40 MG vial IV SCH (08:11)
[2018-05-28] MEDS: lactobacillus rhamnosus 10,000 MMU CELLS/CAPSULE PO SCH ×2 (08:11→20:53)
[2018-05-28] MEDS: heparin, porcine 5000 units/ml vial SQ SCH ×2 (08:12→20:51)
[2018-05-28] MEDS: levoFLOXACIN-Levaquin 500mg/D5 100 ML IV SCH (08:12)
[2018-05-28] MEDS: insulin glargine (Lantus) pen - multi-dose SQ SCH (21:37)
[2018-05-28] MEDS ORDERED: VENL-191 PO (23:30)
[2018-05-28] MEDS ORDERED: FLUT16SP2 BOTHNARES (23:30)
[2018-05-28] MEDS ORDERED: LEVO75TA7 PO (23:30)
[2018-05-28] MEDS ORDERED: NORE-33 (23:30)
[2018-05-28] MEDS ORDERED: TERA2CAP4 GT (23:30)
[2018-05-28] MEDS ORDERED: BACL20TA GT (23:50)
[2018-05-29] VITALS (7 sets, daily range): BP systolic 116–158; BP diastolic 63–94
[2018-05-29] MEDS: methylPREDNISolone sod succ/PF 40mg inj. IV SCH ×4 (02:39→19:07)
[2018-05-29] MEDS: mineral oil/petrolatum ophthal oint EACHEYE SCH ×4 (02:39→19:09)
[2018-05-29] MEDS: ipratropium/albuterol 3ml nebule NEB SCH ×4 (02:40→20:54)
[2018-05-29] MEDS: insulin regular, human vial - multi-dose SQ SCH ×4 (03:13→20:12)
[2018-05-29 05:05] LABS: BASOPHILS % (AUTO) 0 % (0-1); EOSINOPHILS # (AUTO) 0.2 X10'3 (0-0.9); EOSINOPHILS % (AUTO) 1.5 % (0-6); HEMATOCRIT 34.9 % (35.0-45.0); HEMOGLOBIN 11.2 g/dl (12.0-16.0); LYMPHOCYTES # (AUTO) 1.6 X10'3 (1.1-4.8); LYMPHOCYTES % (AUTO) 12.3 % (21-51); MEAN CORPUSCULAR HEMOGLOBIN 26.8 PG (27.0-31.0); MEAN CORPUSCULAR HGB CONC 32.1 % (33.0-36.5); MEAN CORPUSCULAR VOLUME 83.5 FL (78-98); MEAN PLATELET VOLUME 9.6 FL (7.4-10.4); MONOCYTES # (AUTO) 0.6 X10'3 (0-0.9); MONOCYTES % (AUTO) 4.9 % (2-12); NEUTROPHILS # (AUTO) 10.4 X10'3 (1.8-7.7); NEUTROPHILS % (AUTO) 81.3 % (42-75); PLATELET COUNT 317 X10'3 (140-440); RED BLOOD COUNT 4.18 X10'6 (4.20-5.60); RED CELL DISTRIBUTION WIDTH 15.4 % (11.5-14.5); WHITE BLOOD COUNT 12.8 X10'3 (4.5-11.0)
[2018-05-29 05:35] LABS: ALANINE AMINOTRANSFERASE 352 U/L (12-78); ALBUMIN 2.4 G/DL (3.4-5.0); ALBUMIN/GLOBULIN RATIO 0.7 (1.1-1.5); ALKALINE PHOSPHATASE 242 IU/L (46-116); ANION GAP 7 (8-16); ASPARTATE AMINO TRANSFERASE 80 U/L (10-37); BILIRUBIN,TOTAL 0.9 MG/DL (0.1-1.0); BLOOD UREA NITROGEN 22 MG/DL (7-18); BUN/CREATININE RATIO 56.4 (6.6-38.0); CALCIUM 8.8 MG/DL (8.5-10.1); CHLORIDE 106 MMOL/L (99-107); CREATININE 0.39 MG/DL (0.40-0.90); GLUCOSE 135 MG/DL (70-104); MAGNESIUM 1.9 MG/DL (1.5-2.4); PHOSPHORUS 3.3 MG/DL (2.3-4.5); POTASSIUM 3.4 MMOL/L (3.5-5.1); SODIUM 143 MMOL/L (135-145); TOTAL CARBON DIOXIDE 29.7 MMOL/L (24-32); TOTAL PROTEIN 5.9 G/DL (6.4-8.2); eGFR > 90 ML/MIN
[2018-05-29] MEDS: levoFLOXACIN-Levaquin 500mg/D5 100 ML IV SCH (08:49)
[2018-05-29] MEDS: pantoprazole 40 MG vial IV SCH (08:50)
[2018-05-29] MEDS: potassium Cl oral solution 20 MEQ/15 ML PO PRN ×3 (08:50→21:41)
[2018-05-29] MEDS: heparin, porcine 5000 units/ml vial SQ SCH ×2 (08:50→19:08)
[2018-05-29] MEDS: venlafaxine 37.5mg tablet PO SCH (08:50)
[2018-05-29] MEDS: lactobacillus rhamnosus 10,000 MMU CELLS/CAPSULE PO SCH ×2 (08:50→19:09)
[2018-05-29] MEDS: metroNIDAZOLE-Flagyl 500mg/NS 100 ML IV SCH (17:07)
[2018-05-29] MEDS: insulin glargine (Lantus) pen - multi-dose SQ SCH (21:19)
[2018-05-30] MEDS: mineral oil/petrolatum ophthal oint EACHEYE SCH ×4 (02:18→20:23)
[2018-05-30] MEDS: methylPREDNISolone sod succ/PF 40mg inj. IV SCH ×4 (02:18→20:23)
[2018-05-30] MEDS: insulin regular, human vial - multi-dose SQ SCH ×4 (02:24→20:28)
[2018-05-30] MEDS: ipratropium/albuterol 3ml nebule NEB SCH ×4 (02:31→19:53)
[2018-05-30 03:24] VITALS: BP 159/88
[2018-05-30 05:17] LABS: BASOPHILS % (AUTO) 0.1 % (0-1); EOSINOPHILS # (AUTO) 0.2 X10'3 (0-0.9); EOSINOPHILS % (AUTO) 1.5 % (0-6); HEMATOCRIT 37.8 % (35.0-45.0); HEMOGLOBIN 12.3 g/dl (12.0-16.0); LYMPHOCYTES # (AUTO) 1.9 X10'3 (1.1-4.8); LYMPHOCYTES % (AUTO) 12.1 % (21-51); MEAN CORPUSCULAR HEMOGLOBIN 27.3 PG (27.0-31.0); MEAN CORPUSCULAR HGB CONC 32.4 % (33.0-36.5); MEAN CORPUSCULAR VOLUME 84.3 FL (78-98); MEAN PLATELET VOLUME 9.6 FL (7.4-10.4); MONOCYTES # (AUTO) 0.8 X10'3 (0-0.9); MONOCYTES % (AUTO) 5.2 % (2-12); NEUTROPHILS # (AUTO) 12.4 X10'3 (1.8-7.7); NEUTROPHILS % (AUTO) 81.1 % (42-75); PLATELET COUNT 389 X10'3 (140-440); RED BLOOD COUNT 4.48 X10'6 (4.20-5.60); RED CELL DISTRIBUTION WIDTH 15.6 % (11.5-14.5); WHITE BLOOD COUNT 15.3 X10'3 (4.5-11.0)
[2018-05-30 05:43] LABS: ALANINE AMINOTRANSFERASE 363 U/L (12-78); ALBUMIN 2.5 G/DL (3.4-5.0); ALBUMIN/GLOBULIN RATIO 0.7 (1.1-1.5); ALKALINE PHOSPHATASE 240 IU/L (46-116); ANION GAP 6 (8-16); ASPARTATE AMINO TRANSFERASE 79 U/L (10-37); BILIRUBIN,TOTAL 0.9 MG/DL (0.1-1.0); BLOOD UREA NITROGEN 23 MG/DL (7-18); CALCIUM 8.6 MG/DL (8.5-10.1); CHLORIDE 101 MMOL/L (99-107); CREATININE 0.39 MG/DL (0.40-0.90); GLUCOSE 135 MG/DL (70-104); MAGNESIUM 2.2 MG/DL (1.5-2.4); PHOSPHORUS 3.9 MG/DL (2.3-4.5); POTASSIUM 3.7 MMOL/L (3.5-5.1); SODIUM 137 MMOL/L (135-145); TOTAL CARBON DIOXIDE 29.7 MMOL/L (24-32); TOTAL PROTEIN 5.9 G/DL (6.4-8.2); eGFR > 90 ML/MIN
[2018-05-30 06:00] VITALS: BP 157/74
[2018-05-30] MEDS: DASETTA PO SCH (08:00)
[2018-05-30] MEDS: lactobacillus rhamnosus 10,000 MMU CELLS/CAPSULE PO SCH ×2 (09:10→20:23)
[2018-05-30] MEDS: pantoprazole 40 MG vial IV SCH (09:10)
[2018-05-30] MEDS: venlafaxine 37.5mg tablet PO SCH (09:11)
[2018-05-30] MEDS: heparin, porcine 5000 units/ml vial SQ SCH ×2 (09:12→20:23)
[2018-05-30] MEDS: metroNIDAZOLE-Flagyl 500mg/NS 100 ML IV SCH ×3 (09:12→16:02)
[2018-05-30] MEDS: levoFLOXACIN-Levaquin 500mg/D5 100 ML IV SCH (10:48)
[2018-05-30 11:00] VITALS: BP 149/86
[2018-05-30 15:00] VITALS: BP 145/73
[2018-05-30 19:00] VITALS: BP 120/85
[2018-05-30] MEDS: insulin glargine (Lantus) pen - multi-dose SQ SCH (21:34)
[2018-05-30 23:00] VITALS: BP 138/72
[2018-05-31] MEDS: metroNIDAZOLE-Flagyl 500mg/NS 100 ML IV SCH ×4 (00:13→23:51)
[2018-05-31] MEDS: methylPREDNISolone sod succ/PF 40mg inj. IV SCH ×4 (01:09→19:51)
[2018-05-31] MEDS: mineral oil/petrolatum ophthal oint EACHEYE SCH ×4 (01:09→20:08)
[2018-05-31] MEDS: insulin regular, human vial - multi-dose SQ SCH ×4 (02:08→20:07)
[2018-05-31 03:00] VITALS: BP 143/79
[2018-05-31] MEDS: ipratropium/albuterol 3ml nebule NEB SCH ×4 (03:04→20:20)
[2018-05-31 06:00] VITALS: BP 126/72
[2018-05-31] MEDS: pantoprazole 40 MG vial IV SCH (07:46)
[2018-05-31] MEDS: lactobacillus rhamnosus 10,000 MMU CELLS/CAPSULE PO SCH ×2 (07:46→19:51)
[2018-05-31] MEDS: heparin, porcine 5000 units/ml vial SQ SCH ×2 (07:46→19:52)
[2018-05-31] MEDS: venlafaxine 37.5mg tablet PO SCH (07:46)
[2018-05-31] MEDS: DASETTA PO SCH (08:00)
[2018-05-31] MEDS: levoFLOXACIN-Levaquin 500mg/D5 100 ML IV SCH (08:54)
[2018-05-31 11:00] VITALS: BP_SYST 164; BP_SYST 181; BP_DIAS 115; BP_DIAS 99
[2018-05-31] MEDS ORDERED: LEVO500T2 PO (13:01)
[2018-05-31] MEDS ORDERED: METR500T4 PO (13:01)
[2018-05-31 15:00] VITALS: BP 158/87
[2018-05-31 19:00] VITALS: BP 143/81
[2018-05-31] MEDS: insulin glargine (Lantus) pen - multi-dose SQ SCH (21:26)
[2018-05-31 23:00] VITALS: BP 150/80
[2018-06-01] MEDS: methylPREDNISolone sod succ/PF 40mg inj. IV SCH ×2 (01:00→07:40)
[2018-06-01] MEDS: mineral oil/petrolatum ophthal oint EACHEYE SCH ×2 (01:00→07:39)
[2018-06-01] MEDS: insulin regular, human vial - multi-dose SQ SCH ×2 (01:54→08:16)
[2018-06-01] MEDS: ipratropium/albuterol 3ml nebule NEB SCH ×2 (02:52→08:00)
[2018-06-01 02:59] VITALS: BP 154/76
[2018-06-01 06:00] VITALS: BP 175/94
[2018-06-01] MEDS: venlafaxine 37.5mg tablet PO SCH (07:40)
[2018-06-01] MEDS: DASETTA PO SCH (07:40)
[2018-06-01] MEDS: metroNIDAZOLE-Flagyl 500mg/NS 100 ML IV SCH (07:40)
[2018-06-01] MEDS: lactobacillus rhamnosus 10,000 MMU CELLS/CAPSULE PO SCH (07:40)
[2018-06-01] MEDS: pantoprazole 40 MG vial IV SCH (07:40)
[2018-06-01] MEDS: heparin, porcine 5000 units/ml vial SQ SCH (07:40)
[2018-06-01] MEDS: levoFLOXACIN-Levaquin 500mg/D5 100 ML IV SCH (09:08)
[2018-06-01 11:00] VITALS: BP 167/90
[2018-06-01] MEDS ORDERED: NUTR250L26 GT ×2 (13:23)
[2018-06-01] MEDS ORDERED: LEVO500T2 GT (13:23)
[2018-06-01] MEDS ORDERED: METR500T4 GT (13:23)
[2018-06-01] MEDS ORDERED: POLY17PO10 GT (13:23)
[2018-06-01] MEDS ORDERED: LEVO75TA7 GT (13:23)
== END 2018-06-01 14:02 | disposition home health service (06) | DRG 870 ==
LOC: ER 14:51 → ED HOLD 17:20 → PCU 3S 20:40 → ICU 2S 05-23 06:08 → PCU 3S 05-28 13:20
PROVIDERS: ADMIT Family Medicine; ATTEND Internal Medicine
PROC: 5A1955Z Respiratory Ventilation, Greater than 96 Consecutive Hours (ICD-10-PCS; principal; 2018-05-23)
PROC: 0BH17EZ Insertion of Endotracheal Airway into Trachea, Via Natural or Artificial Opening (ICD-10-PCS; 2018-05-23)
PROC: B32T1ZZ Computerized Tomography (CT Scan) of Left Pulmonary Artery using Low Osmolar Contrast (ICD-10-PCS; 2018-05-23)
PROC: B3201ZZ Computerized Tomography (CT Scan) of Thoracic Aorta using Low Osmolar Contrast (ICD-10-PCS; 2018-05-23)
PROC: B32S1ZZ Computerized Tomography (CT Scan) of Right Pulmonary Artery using Low Osmolar Contrast (ICD-10-PCS; 2018-05-23)
DX: A41.9 Sepsis, unspecified organism (principal); J96.01 Acute respiratory failure with hypoxia; J69.0 Pneumonitis due to inhalation of food and vomit; N39.0 Urinary tract infection, site not specified; B96.20 Unspecified Escherichia coli [E. coli] as the cause of diseases classified elsewhere; E03.9 Hypothyroidism, unspecified; G80.9 Cerebral palsy, unspecified; N94.6 Dysmenorrhea, unspecified; R73.9 Hyperglycemia, unspecified; R74.8 Abnormal levels of other serum enzymes; K21.9 Gastro-esophageal reflux disease without esophagitis; K44.9 Diaphragmatic hernia without obstruction or gangrene; K73.9 Chronic hepatitis, unspecified; M41.9 Scoliosis, unspecified; M81.0 Age-related osteoporosis without current pathological fracture; Z93.1 Gastrostomy status; Z74.01 Bed confinement status; Z79.899 Other long term (current) drug therapy; Z88.1 Allergy status to other antibiotic agents; Z88.8 Allergy status to other drugs, medicaments and biological substances; Z87.11 Personal history of peptic ulcer disease
CPT/HCPCS: 36415; 36600; 71045; 71275; 76700; 80053; 81001; 82803; 82948; 83605; 83735; 83880; 84100; 84132; 84134; 84145; 84443; 85018; 85025; 85610; 85730; 87040; 87070; 87077; 87088; 87186; 93306; 94002; 94003; 94640; 94760; 96365; 97162; 97530; 99285; A4315; A4333; A4353; A4620; A6213; A6250; A6402; A6449; A7015; C1751; C1758; C9113; J1644; J1815; J1940; J1956; J2060; J2250; J2543; J2920; J2930; J3480; J3490; J7030; Q9967

== ENCOUNTER 2018-06-25 16:48 | Emergency (ER) | payer MEDICARE, MEDICAID ==
[~2018-06-25 16:48] MED LIST changes: -ACET-2119 PO; -BACL10TA PO; +BACL20TA GT; -CHOL200016 GT; +LEVO500T2 GT; +LEVO75TA7 GT; +METR500T4 GT; +NORE-33; -NORE1TAB4 GT; +NUTR250L26 GT; -NUTR250L51 GT; -SIME125T8 PEG; +TERA2CAP4 GT; -[UNRECOGNIZED DRUG - CODE] PEG; -etomidate 2mg/ml inj. ONE; -rocuronium 10mg/ml inj IV ONE; -sod chloride 0.9% 10ml flush syringe IV ONE
[2018-06-25 16:52] VITALS: BP 110/48
== END 2018-06-25 19:40 | disposition home or self-care (01) ==
LOC: ER 16:49
DX: S82.221A Displaced transverse fracture of shaft of right tibia, initial encounter for closed fracture (principal); E03.9 Hypothyroidism, unspecified; M81.0 Age-related osteoporosis without current pathological fracture; Z88.1 Allergy status to other antibiotic agents; Z88.8 Allergy status to other drugs, medicaments and biological substances; X58.XXXA Exposure to other specified factors, initial encounter; Y93.89 Activity, other specified; Y92.89 Other specified places as the place of occurrence of the external cause; Y99.8 Other external cause status; K21.9 Gastro-esophageal reflux disease without esophagitis
CPT/HCPCS: 29515; 93971; 99284

== ENCOUNTER 2018-06-30 15:34 | Outpatient (CLI) | payer MEDICARE, MEDICAID ==
[2018-06-30 15:32] VITALS: BP 106/69
== END 2018-06-30 16:30 | disposition home or self-care (01) ==
LOC: ORTHO 15:34
PROVIDERS: ATTEND Nurse Practitioner Family
DX: S82.101A Unspecified fracture of upper end of right tibia, initial encounter for closed fracture (principal); Z88.1 Allergy status to other antibiotic agents; X58.XXXA Exposure to other specified factors, initial encounter; Y93.89 Activity, other specified; Y92.89 Other specified places as the place of occurrence of the external cause; Y99.8 Other external cause status
CPT/HCPCS: 99213

== ENCOUNTER 2018-07-14 09:30 | Outpatient (CLI) | payer MEDICARE, MEDICAID | END 2018-07-14 10:46 | disposition home or self-care (01) | LOC: ORTHO 09:30 | PROVIDERS: ATTEND Nurse Practitioner Family | DX: S82.831G Other fracture of upper and lower end of right fibula, subsequent encounter for closed fracture with delayed healing (principal); S82.101 Unspecified fracture of upper end of right tibia; Z88.1 Allergy status to other antibiotic agents; Z91.018 Allergy to other foods; X58.XXXD Exposure to other specified factors, subsequent encounter | CPT/HCPCS: 73590; 99213 ==

== ENCOUNTER 2018-08-04 10:18 | Outpatient (CLI) | payer MEDICARE, MEDICAID | END 2018-08-04 11:00 | disposition home or self-care (01) | LOC: ORTHO 10:18 | PROVIDERS: ATTEND Nurse Practitioner Family | DX: S82.831G Other fracture of upper and lower end of right fibula, subsequent encounter for closed fracture with delayed healing (principal); S82.101 Unspecified fracture of upper end of right tibia; L89.610 Pressure ulcer of right heel, unstageable; G80.9 Cerebral palsy, unspecified; Z88.1 Allergy status to other antibiotic agents; Z91.018 Allergy to other foods; X58.XXXD Exposure to other specified factors, subsequent encounter | CPT/HCPCS: 73590; 99213 ==

== ENCOUNTER 2018-08-24 08:59 | Outpatient (CLI) | payer MEDICARE, MEDICAID | END 2018-08-24 09:30 | disposition home or self-care (01) | LOC: ORTHO 08:59 | PROVIDERS: ATTEND Nurse Practitioner Family | DX: S82.191D Other fracture of upper end of right tibia, subsequent encounter for closed fracture with routine healing (principal); S82.831D Other fracture of upper and lower end of right fibula, subsequent encounter for closed fracture with routine healing; L89.610 Pressure ulcer of right heel, unstageable; G80.9 Cerebral palsy, unspecified; Z88.0 Allergy status to penicillin; Z88.1 Allergy status to other antibiotic agents; X58.XXXD Exposure to other specified factors, subsequent encounter | CPT/HCPCS: 73590; 99213 ==

== ENCOUNTER 2018-09-21 09:34 | Outpatient (CLI) | payer MEDICARE, MEDICAID | END 2018-09-21 10:17 | disposition home or self-care (01) | LOC: ORTHO 09:34 | PROVIDERS: ATTEND Nurse Practitioner Family | DX: S82.191D Other fracture of upper end of right tibia, subsequent encounter for closed fracture with routine healing (principal); S82.831D Other fracture of upper and lower end of right fibula, subsequent encounter for closed fracture with routine healing; L89.610 Pressure ulcer of right heel, unstageable; M85.88 Other specified disorders of bone density and structure, other site; Z88.1 Allergy status to other antibiotic agents; Z88.8 Allergy status to other drugs, medicaments and biological substances; Z91.018 Allergy to other foods; X58.XXXD Exposure to other specified factors, subsequent encounter | CPT/HCPCS: 73560; 99213 ==

== ENCOUNTER 2018-10-20 11:10 | Outpatient (CLI) | payer MEDICARE, MEDICAID ==
[~2018-10-20 11:10] MED LIST changes: +METR-211 GT; -METR500T4 GT
== END 2018-10-20 11:53 | disposition home or self-care (01) ==
LOC: ORTHO 11:10
PROVIDERS: ATTEND Nurse Practitioner Family
DX: S82.191D Other fracture of upper end of right tibia, subsequent encounter for closed fracture with routine healing (principal); S82.831D Other fracture of upper and lower end of right fibula, subsequent encounter for closed fracture with routine healing; L89.610 Pressure ulcer of right heel, unstageable; Z88.1 Allergy status to other antibiotic agents; Z88.8 Allergy status to other drugs, medicaments and biological substances; Z91.048 Other nonmedicinal substance allergy status; X58.XXXD Exposure to other specified factors, subsequent encounter
CPT/HCPCS: 73560; 99213

== ENCOUNTER 2022-01-24 11:01 | Day surgery (SDC) | payer MEDICARE, MEDICAID ==
[~2022-01-24] VITALS: Ht 154.9 cm; Wt 50.5 kg
[2022-01-24] VITALS (8 sets, daily range): BP systolic 104–163; BP diastolic 60–90
[~2022-01-24 11:01] MED LIST changes: -LEVO500T2 GT; -LEVO75TA7 GT; -METR-211 GT; +NITR100C6 PO; -NORE-33; +NORE-33 PO; +OMEG1600 PO
[2022-01-24] MEDS ORDERED: fentaNYL/PF 50MCG/1 ML 2ML syringe ONE (11:08)
[2022-01-24] MEDS ORDERED: MIDAZolam 1 MG/ML 5ML VIAL ONE (11:09)
[2022-01-24] MEDS ORDERED: LIDOcaine Viscous 15ml cup ONE (11:09)
[2022-01-24] MEDS ORDERED: glucagon, human recombinant 1mg kit ONE (11:09)
[2022-01-24] MEDS ORDERED: iohexol 300 MG/1 ML 50ml polymer ONE (11:09)
[2022-01-24] MEDS ORDERED: levoFLOXACIN-Levaquin 500mg/D5 100 ML IV ONE (11:18)
[2022-01-24] MEDS ORDERED: FAMO20TA8 PO (11:44)
[2022-01-24] MEDS ORDERED: FERR-39 PO (11:45)
[2022-01-24] MEDS ORDERED: LEVO300T2 PO (11:46)
[2022-01-24] MEDS ORDERED: NORE-33 PO (11:47)
[2022-01-24] MEDS ORDERED: CRAN450T4 PO (11:47)
[2022-01-24] MEDS ORDERED: AMLO2.5T2 PO (11:48)
[2022-01-24] MEDS ORDERED: diphenhydrAMINE 50 mg/ml inj ONE (11:49)
== END 2022-01-24 14:18 | disposition home or self-care (01) ==
LOC: GI LAB 11:01
PROVIDERS: ATTEND Internal Medicine Gastroenterology
DX: K80.50 Calculus of bile duct without cholangitis or cholecystitis without obstruction (principal); R10.84 Generalized abdominal pain; R17 Unspecified jaundice; Z93.1 Gastrostomy status
CPT/HCPCS: 43260; 43450; 99153; C1769; G0500; J1200; J1610; J1956; J2250; J3010; J7040; Q9967; Z7512; 99152; A4620